=== PATIENT | male | born 1955 | race American Indian/Alaskan Native ===

== ENCOUNTER 2016-03-08 11:38 | Emergency (ER) | payer MEDICAID ==
--- NOTE | 2016-03-08 11:50 | Emergency Department Report ---
Chief Complaint: Pain General Stated Complaint: BACK/ARM PAIN Time Seen by Provider: 03/08/16 11:46 - HPI History of Present Illness: 60 y/o male complain of right arm pain and back pain x 2 months .pt state has been out blood pressure medication x 2 years .pt complain of headache with blurry vision .pt was told the last time he was evaluate by eye doctor was told had glaucoma.denies any N/v/d. - ROS Review of Systems: per HPI - Exam Vital Signs: Vital Signs 03/08/16 11:42 Temperature 98 F Pulse Rate 80 Blood Pressure 184/136 O2 Sat by Pulse 100 Oximetry Physical Exam: GENERAL: The patient is well-developed and well-nourished. Patient is in NAD. HENT: Normocephalic. Atraumatic. Patient has moist mucous membranes. Throat: No erythema, swelling or exudates. EYES: Extraocular motions are intact, PERRL NECK: Supple. No meningitic signs are noted. There is no adenopathy noted. CHEST/LUNGS: Clear to auscultation bilaterally. No wheezing, rales or rhonchi noted. There is no respiratory distress noted. HEART/CARDIOVASCULAR: Regular rate and rhythm. Normal S1 S2. No murmurs, rubs , clicks, or gallops. ABDOMEN: Abdomen is soft, nontender.. Bowel sounds normoactive. There is no abdominal distention. Negative rebound tenderness. : Deferred. SKIN: There is no rash. There is no edema. There is no diaphoresis. NEURO: The patient is A&Ox3. The patient has no focal neurologic deficits. MUSCULOSKELETAL: There is no tenderness or deformity. There is no limitation range of motion. PSYCH: Pt has appropriate mood and affect. MSE screening note: Focused history and physical exam performed. Due to findings the following was ordered: ED Disposition for MSE Condition: Stable
[2016-03-08 12:11] LABS: Eosinophils % (Auto) 5.2 % (0.0-4.3); Hematocrit 44.5 % (35.5-45.6); Hemoglobin 15.1 gm/dl (11.8-15.2); Mean Corpuscular HGB Conc 34 % (32-34); Mean Corpuscular Hemoglobin 33 pg (28-32); Mean Corpuscular Volume 98 fl (84-94); Platelet Count 202 K/mm3 (140-440); Red Blood Count 4.55 M/mm3 (3.65-5.03); Red Cell Distribution Width 13.5 % (13.2-15.2); White Blood Count 5.2 K/mm3 (4.5-11.0)
[2016-03-08 12:29] LABS: Alanine Aminotransferase 111 units/L (7-56); Albumin 3.7 g/dL (3.9-5); Albumin/Globulin Ratio 0.9 %; Alkaline Phosphatase 105 units/L (35-129); Anion Gap 17 mmol/L; BUN/Creatinine Ratio 12.22; Bilirubin,Total 0.6 mg/dL (0.1-1.2); Blood Urea Nitrogen 11 mg/dL (9-20); Calcium 8.4 mg/dL (8.4-10.2); Carbon Dioxide 26 mmol/L (22-30); Chloride 98.4 mmol/L (98-107); Glucose 111 mg/dL (75-100); Potassium 4.1 mmol/L (3.6-5.0); Sodium 137 mmol/L (137-145); Total Protein 7.9 g/dL (6.3-8.2)
[2016-03-08] MEDS ORDERED: NORCO 5/325 PO ONE (13:42)
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
[2016-03-08 14:03] LABS: Bilirubin,Urine NEG (Negative); Blood,Urine NEG (Negative); Ketones,Urine NEG (Negative); Leukocyte Esterase,Urine NEG (Negative); Mucus,Urine FEW /HPF; Nitrite,Urine NEG (Negative); Protein,Urine <15 mg/dL mg/dL (Negative); Sperm,Urine FEW /HPF (NP); Urobilinogen,Urine < 2.0 mg/dL (<2.0)
[2016-03-08 15:49] VITALS: BP 155/97
== END 2016-03-08 15:47 | disposition home or self-care (01) ==
LOC: ED 11:38
DX: M79.601 Pain in right arm (principal); I10 Essential (primary) hypertension; G89.29 Other chronic pain; F17.200 Nicotine dependence, unspecified, uncomplicated
CPT/HCPCS: 36415; 80053; 81001; 85025; 99283

== ENCOUNTER 2016-08-13 08:53 | Emergency (ER) | payer MEDICAID ==
[2016-08-13] MEDS ORDERED: NORCO 5/325 PO ONE (10:45)
[2016-08-13 11:04] LABS: Hematocrit 49.1 % (35.5-45.6); Hemoglobin 16.2 gm/dl (11.8-15.2); Mean Corpuscular HGB Conc 33 % (32-34); Mean Corpuscular Hemoglobin 32 pg (28-32); Mean Corpuscular Volume 97 fl (84-94); Platelet Count 179 K/mm3 (140-440); Red Blood Count 5.05 M/mm3 (3.65-5.03); Red Cell Distribution Width 14.7 % (13.2-15.2)
[2016-08-13 11:21] LABS: Bilirubin,Urine NEG (Negative); Blood,Urine NEG (Negative); Ketones,Urine NEG (Negative); Leukocyte Esterase,Urine NEG (Negative); Mucus,Urine FEW /HPF; Nitrite,Urine NEG (Negative); Protein,Urine <15 mg/dL mg/dL (Negative); RBC,Urine < 1.0 /HPF (0.0-6.0); Urobilinogen,Urine < 2.0 mg/dL (<2.0); WBC,Urine < 1.0 /HPF (0.0-6.0)
[2016-08-13 12:05] LABS: Basophils % (Manual) 0 % (0.0-1.8); Blastocytes % (Manual) 0 %
[2016-08-13 12:06] LABS: Diff Status Complete; RBC Morphology Normal
--- NOTE | 2016-08-13 12:07 | Ultrasound Report ---
RIGHT BREAST ULTRASOUND: 08/13/16 08:53:00 CLINICAL: 61-year-old male with a right breast lump. Possible abscess. COMPARISON: None. FINDINGS: Ultrasound of the right breast(including all four quadrants and the retroareolar area) was performed and demonstrated no mass or abscess. No fluid collection or shadowing. Moderate retroareolar fibroglandular structures. IMPRESSION: 1. No abscess or mass. 2. Probable benign right gynecomastia. Recommend a bilateral mammogram as an outpatient to complete the examination. BI-RADS 0--Needs Additional Imaging
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
[2016-08-13] MEDS ORDERED: CATAPRES PO ONE (13:15)
[2016-08-13 14:09] VITALS: BP 148/100
== END 2016-08-13 14:17 | disposition home or self-care (01) ==
LOC: ED 08:53
DX: N63 Unspecified lump in breast (principal); M54.5 Low back pain; M79.601 Pain in right arm; G89.29 Other chronic pain; I10 Essential (primary) hypertension; F17.200 Nicotine dependence, unspecified, uncomplicated; Z88.6 Allergy status to analgesic agent; Z88.8 Allergy status to other drugs, medicaments and biological substances
CPT/HCPCS: 36415; 81001; 85007; 85025

== ENCOUNTER 2016-10-15 11:04 | Emergency (ER) | payer MEDICAID ==
[2016-10-15] MEDS ORDERED: CLEOCIN 900 MG/50 mL 900 MG/50 ML BAG IV ONE (13:24)
[2016-10-15] MEDS ORDERED: NACL 0.9% 1000 ML 1,000 ML IV ONE (13:24)
[2016-10-15] MEDS ORDERED: BOOSTRIX IM ONE (13:27)
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
[2016-10-15] MEDS ORDERED: NORCO 5/325 PO ONE (13:33)
[2016-10-15 13:45] LABS: Basophils % (Auto) 0.7 % (0.0-1.8); Eosinophils % (Auto) 0.2 % (0.0-4.3); Hematocrit 37.3 % (35.5-45.6); Hemoglobin 12.7 gm/dl (11.8-15.2); Mean Corpuscular HGB Conc 34 % (32-34); Mean Corpuscular Hemoglobin 34 pg (28-32); Mean Corpuscular Volume 100 fl (84-94); Platelet Count 103 K/mm3 (140-440); Red Blood Count 3.73 M/mm3 (3.65-5.03); Red Cell Distribution Width 15.6 % (13.2-15.2); White Blood Count 11.1 K/mm3 (4.5-11.0)
--- NOTE | 2016-10-15 13:52 | XRay Report ---
Left hand: Trauma with ice pick. A marker identifies the second digit as the area of trauma. No evidence of puncture wound, swelling, or foreign body. The visualized bones and joints appear normal. Impression: Normal exam.
[2016-10-15 14:06] LABS: Anion Gap 20 mmol/L; Blood Urea Nitrogen 9 mg/dL (9-20); Calcium 8.2 mg/dL (8.4-10.2); Carbon Dioxide 22 mmol/L (22-30); Chloride 93.9 mmol/L (98-107); Erythrocyte Sedimentation Rate 37 mm/Hr (0-20); Glucose 147 mg/dL (75-100); Potassium 3.8 mmol/L (3.6-5.0); Sodium 132 mmol/L (137-145)
[2016-10-15 14:50] VITALS: BP 147/90
== END 2016-10-15 15:25 | disposition home or self-care (01) ==
LOC: ED 11:04
DX: S61.231A Puncture wound without foreign body of left index finger without damage to nail, initial encounter (principal); L03.114 Cellulitis of left upper limb; I10 Essential (primary) hypertension; F17.200 Nicotine dependence, unspecified, uncomplicated; X58.XXXA Exposure to other specified factors, initial encounter; Y93.9 Activity, unspecified; Y92.9 Unspecified place or not applicable; Y99.9 Unspecified external cause status
CPT/HCPCS: 36415; 73130; 80048; 85025; 85652; 86140; 87040; 90471; 90715; 96365; 99284; J7030

== ENCOUNTER 2016-10-19 18:28 | Emergency (ER) | payer MEDICAID ==
--- NOTE | 2016-10-19 21:59 | XRay Report ---
FINAL REPORT EXAM: XR HAND 3+V LT HISTORY: LEFT HAND SWELLING; left index finger cellulitis TECHNIQUE: Three views of the left hand PRIORS: None. FINDINGS: The bones are normally aligned and diffusely mineralized. The joint spaces are well-preserved. There is no evidence of acute fracture. There is diffuse soft tissue swelling of the index finger. There is no evidence of soft tissue air or foreign body. IMPRESSION: Diffuse soft tissue swelling of the left index finger. No evidence of soft tissue air or foreign body.
[2016-10-20 00:01] LABS: Anion Gap 23 mmol/L; BUN/Creatinine Ratio 6.66; Blood Urea Nitrogen 6 mg/dL (9-20); Calcium 8.7 mg/dL (8.4-10.2); Carbon Dioxide 20 mmol/L (22-30); Chloride 97.8 mmol/L (98-107); Glucose 87 mg/dL (75-100); Potassium 3.9 mmol/L (3.6-5.0); Sodium 137 mmol/L (137-145)
[2016-10-20 00:10] LABS: Eosinophils % (Auto) 1.1 % (0.0-4.3); Hematocrit 36.1 % (35.5-45.6); Hemoglobin 12.1 gm/dl (11.8-15.2); Mean Corpuscular HGB Conc 34 % (32-34); Mean Corpuscular Hemoglobin 34 pg (28-32); Mean Corpuscular Volume 103 fl (84-94); Platelet Count 191 K/mm3 (140-440); Red Blood Count 3.52 M/mm3 (3.65-5.03); Red Cell Distribution Width 16.5 % (13.2-15.2); White Blood Count 10.1 K/mm3 (4.5-11.0)
[2016-10-20 00:44] LABS: Erythrocyte Sedimentation Rate 39 mm/Hr (0-20)
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
[2016-10-20] MEDS ORDERED: TYLENOL #3 PO ONE (01:23)
[2016-10-20] MEDS ORDERED: CLEOCIN IM ONE (01:23)
[2016-10-20 04:00] VITALS: BP 165/107
== END 2016-10-20 02:15 | disposition home or self-care (01) ==
LOC: ED 18:28
DX: L03.114 Cellulitis of left upper limb (principal); I10 Essential (primary) hypertension; F17.210 Nicotine dependence, cigarettes, uncomplicated
CPT/HCPCS: 36415; 80048; 82140; 85025; 85652; 86140; 87040; 96372; 99284

== ENCOUNTER 2016-10-25 13:38 | Emergency (ER) | payer MEDICAID ==
[2016-10-25] MEDS ORDERED: XYLOCAINE 1% MPF 5 mL ONE (14:39)
[2016-10-25] MEDS ORDERED: TRIPLE ANTIBIOTIC TP ONE (15:02)
[2016-10-25 15:39] VITALS: BP 127/90
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
== END 2016-10-25 15:37 | disposition home or self-care (01) ==
LOC: ED 13:38
DX: L03.114 Cellulitis of left upper limb (principal); I10 Essential (primary) hypertension; G89.29 Other chronic pain; F17.200 Nicotine dependence, unspecified, uncomplicated; Z88.6 Allergy status to analgesic agent; Z88.8 Allergy status to other drugs, medicaments and biological substances
CPT/HCPCS: 99282; A6250

== ENCOUNTER 2017-05-15 17:50 | Inpatient (IN) | payer MEDICAID ==
[2017-05-15] MEDS ORDERED: NITROSTAT SL ONE (18:29)
[2017-05-15] MEDS ORDERED: NACL 0.9% 1000 ML 1,000 ML IV ONE (18:29)
--- NOTE | 2017-05-15 18:31 | Event Note ---
Date: 05/15/17 61-year-old male complaining of upper thoracic back pain, nontraumatic, noted to be tachycardic, also incidentally complains of central chest pain on and off over the past 2 days. Check labs, x-ray of the chest, EKG, patient should be triaged to the main side of the emergency room for further evaluation of upper thoracic back pain, chest pain and tachycardia. Hemodynamically stable at this time, walking with a steady gait, protecting airway. Reports no DVT or pulmonary embolus risk factors. Vital Signs 05/15/17 18:02 Temperature 97.5 F L Pulse Rate 126 H Respiratory 16 Rate Blood Pressure 160/120 O2 Sat by Pulse 98 Oximetry
[2017-05-15 19:05] LABS: Basophils # (Auto) 0.1 K/mm3 (0.0-0.1); Basophils % (Auto) 1.1 % (0.0-1.8); Eosinophils # (Auto) 0.1 K/mm3 (0.0-0.4); Eosinophils % (Auto) 1.2 % (0.0-4.3); Hematocrit 47.8 % (35.5-45.6); Hemoglobin 16.4 gm/dl (11.8-15.2); Lymphocytes % (Auto) 41.5 % (13.4-35.0); Mean Corpuscular HGB Conc 34 % (32-34); Mean Corpuscular Hemoglobin 33 pg (28-32); Mean Corpuscular Volume 95 fl (84-94); Monocytes # (Auto) 0.6 K/mm3 (0.0-0.8); Monocytes % (Auto) 11.3 % (0.0-7.3); Platelet Count 117 K/mm3 (140-440); Red Blood Count 5.03 M/mm3 (3.65-5.03); Red Cell Distribution Width 14.7 % (13.2-15.2)
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
[2017-05-15 19:14] LABS: BUN/Creatinine Ratio 10; Blood Urea Nitrogen 11 mg/dL (9-20); Calcium 8.9 mg/dL (8.4-10.2); Hemolysis Index 45
[2017-05-15 19:16] LABS: INR 1.17 (0.87-1.13)
[2017-05-15 19:17] LABS: Partial Thromboplastin Time 30.7 Sec. (24.2-36.6)
--- NOTE | 2017-05-15 20:33 | XRay Report ---
FINAL REPORT EXAM: XR CXR CLINICAL INDICATIONS: CP FINDINGS: Frontal and lateral views of the chest were acquired. The heart is normal in size. The lungs appear clear. The pleura and mediastinum are within normal limits. Sternal wires attest to prior sternotomy. There is no consolidative infiltrate. IMPRESSION: NO ACTIVE DISEASE IN THE CHEST
--- NOTE | 2017-05-15 22:22 | Cat Scan Report ---
FINAL REPORT PROCEDURE: CT ANGIO CHEST TECHNIQUE: Computerized tomographic angiography of the chest was performed during the IV injection of iodinated nonionic contrast including image processing. The image data was postprocessed using 2-dimensional multiplanar reformatted (MPR) and 3-dimensional (MIP and/or volume rendered) techniques. HISTORY: upper back pain, worsening, chest pain COMPARISON: No prior studies are available for comparison. FINDINGS: Pulmonary outflow tract, right and left main pulmonary arteries and their proximal branches: Clear, no filling defects seen to suggest pulmonary embolus. Pericardium: No evidence of pericardial effusion. Thoracic aorta: There is mild aneurysmal dilatation of the ascending thoracic aorta measuring 4.2 x 4.2 centimeter. No dissection is visualized. Coronary arteries: Are unremarkable. Mediastinum and hilar regions: Small calcified lymph nodes are seen in the right hilum. Lung Sagast[place]: Mild scattered emphysematous changes are visualized bilaterally. A small amount of dependent atelectasis is visualized. No focal consolidations effusions pneumothorax or masses are identified. Upper abdomen: Small calcified granulomas seen in the right lobe of the liver. Inferior vena cava filter visualized. No acute abnormalities are seen in the upper abdomen. Other: There is mild deformity posterior aspect right 11th rib and left 9th 10th and 11th rib which appear to represent old healed fractures.. sternotomy wires are visualized from prior thoracotomy.. IMPRESSION: Mild aneurysmal dilatation ascending thoracic aorta. No dissection is seen. No evidence of pulmonary embolus. Mild emphysematous changes are present as well as minimal dependent atelectasis. Lungs otherwise are clear. Prior granulomatous disease. Inferior vena cava filter in place. Old healed rib fractures present bilaterally as described.
[2017-05-15] MEDS ORDERED: CATAPRES PO ONE (22:42)
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
[2017-05-16] MEDS ORDERED: TYLENOL PO PRN (00:40)
[2017-05-16] MEDS ORDERED: SODIUM CHLORIDE FLUSH SYRINGE 10 ML IV PRN (00:40)
[2017-05-16] MEDS ORDERED: MORPHINE IV PRN (00:40)
[2017-05-16] MEDS ORDERED: ZOFRAN IV PRN (00:40)
[2017-05-16] MEDS ORDERED: APRESOLINE IV PRN (00:42)
[2017-05-16 01:51] LABS: Creatine Kinase MB 2.5 ng/mL (0.0-4.0)
[2017-05-16 08:27] LABS: Creatine Kinase MB 2.1 ng/mL (0.0-4.0)
--- NOTE | 2017-05-16 09:17 | Discharge Summary ---
Providers - Providers Date of Admission: 05/15/17 23:50 Date of discharge: 05/17/17 Attending physician: LORE ROTHMAN Primary care physician: DATABASE ADMINISTRATOR Hospitalization Condition: Stable Hospital course: Discharge diagnosis and management: Hypertensive urgency,malignant Chest pain most likely secondary to #1 Acute on chronic back pain thoracic aneurysm, no dissection per CT chest Thrombocytopenia Disposition: SD- TO HOME OR SELFCARE Time spent for discharge: 32 minutes Core Measure Documentation - Palliative Care Palliative Care/ Comfort Measures: Not Applicable - Core Measures Any of the following diagnoses?: none Exam - Constitutional Vitals: Temp Pulse Resp BP Pulse Ox 98.6 F 44 L 18 144/109 97 05/16/17 08:45 05/16/17 08:45 05/16/17 08:45 05/16/17 08:45 05/16/17 08:45 General appearance: Present: no acute distress, well-nourished - EENT Eyes: Present: PERRL ENT: hearing intact, clear oral mucosa - Neck Neck: Present: supple, normal ROM - Respiratory Respiratory effort: normal Respiratory: bilateral: CTA - Cardiovascular Heart Sounds: Present: S1 & S2. Absent: rub, click - Extremities Extremities: pulses symmetrical, No edema Peripheral Pulses: within normal limits - Abdominal General gastrointestinal: Present: soft, non-tender, non-distended, normal bowel sounds - Integumentary Integumentary: Present: clear, warm, dry - Musculoskeletal Musculoskeletal: gait normal, strength equal bilaterally - Psychiatric Psychiatric: appropriate mood/affect, intact judgment & insight - Neurologic Neurologic: CNII-XII intact, moves all extremities Plan Activity: advance as tolerated Weight Bearing Status: Non-Weight Bearing Diet: low fat, low salt Additional Instructions: F/u @ [facility] in one -two weeks Follow up with: [facility] [Provider Group] - 7 Days PRIMARY CARE, [Primary Care Provider] - 3-5 Days Prescriptions: amLODIPine [Norvasc] 5 mg PO DAILY #40 tab Aspirin EC [Aspirin Enteric Coated TAB] 81 mg PO QDAY #30 tablet. Hydrochlorothiazide [HCTZ] 25 mg PO QDAY #40 tablet HYDROcodone/APAP 5-325 [[place] 5-325 mg TAB] 1 each PO Q6HR PRN #30 tablet PRN Reason: Pain Metoprolol [Lopressor TAB] 25 mg PO BID #60 tablet Pantoprazole [Protonix] 40 mg PO QDAY #30 tablet
[2017-05-16] MEDS: LOPRESSOR PO SCH ×2 (09:44→22:28)
[2017-05-16] MEDS: NORVASC PO SCH (09:44)
[2017-05-16] MEDS ORDERED: LOVENOX SUB-Q SCH (10:00)
[2017-05-16] MEDS: SODIUM CHLORIDE FLUSH SYRINGE 10 ML IV SCH ×2 (10:18→22:29)
[2017-05-17 06:44] LABS: Hematocrit 42.1 % (35.5-45.6); Hemoglobin 14.8 gm/dl (11.8-15.2); Mean Corpuscular HGB Conc 35 % (32-34); Mean Corpuscular Hemoglobin 33 pg (28-32); Mean Corpuscular Volume 95 fl (84-94); Red Blood Count 4.44 M/mm3 (3.65-5.03); Red Cell Distribution Width 14.5 % (13.2-15.2)
[2017-05-17 06:51] LABS: Platelet Count 85 K/mm3 (140-440)
[2017-05-17 06:57] LABS: BUN/Creatinine Ratio 13; Blood Urea Nitrogen 10 mg/dL (9-20); Calcium 8.3 mg/dL (8.4-10.2); Hemolysis Index 11
[2017-05-17 07:55] LABS: Anisocytosis 1+; Basophils % (Manual) 0 % (0.0-1.8); Platelet Estimate Appears Decreased; Stomatocytes 2+; Total Cells Counted 100
[2017-05-17] MEDS: LOPRESSOR PO SCH (09:17)
[2017-05-17] MEDS: NORVASC PO SCH (09:17)
[2017-05-17] MEDS: SODIUM CHLORIDE FLUSH SYRINGE 10 ML IV SCH (09:18)
[2017-05-17] MEDS ORDERED: LEXISCAN IV ONE (10:08)
--- NOTE | 2017-05-17 11:48 | Progress Note ---
Assessment and Plan Hypertensive urgency,malignant Chest pain most likely secondary to #1 Acute on chronic back pain thoracic aneurysm, no dissection per CT chest Thrombocytopenia - will follow 2d echo result - stress test in the am - his back pain is chronic with h/o prolapsed disk - patient is ambulatory and willing to f/u outpt for back pain - cont meds to better adjust BP - possible d/c in the am if stress test negative Subjective Date of service: 05/16/17 Interval history: Pt seen and examined States back pain improved with pain medications also states that he gets chest pain intermittently, but denies any chest pain now Objective - Constitutional Vitals: Vital Signs - 12hr 05/17/17 05/17/17 05/17/17 00:37 05:10 07:36 Temperature 98.8 F 97.6 F 98.2 F Pulse Rate 81 85 86 Respiratory 18 18 20 Rate Blood Pressure 127/97 137/101 157/106 O2 Sat by Pulse 99 99 97 Oximetry 05/17/17 09:17 Temperature Pulse Rate 57 L Respiratory Rate Blood Pressure 157/106 O2 Sat by Pulse Oximetry General appearance: Present: no acute distress, well-nourished - EENT Eyes: PERRL, EOM intact ENT: hearing intact, clear oral mucosa Ears: bilateral: normal - Neck Neck: supple, normal ROM - Respiratory Respiratory effort: normal Respiratory: bilateral: CTA - Cardiovascular Rhythm: regular Heart Sounds: Present: S1 & S2. Absent: gallop, rub Extremities: pulses intact, No edema, normal color, Full ROM - Gastrointestinal General gastrointestinal: Present: soft, non-tender, non-distended, normal bowel sounds - Integumentary Integumentary: clear, warm, dry - Musculoskeletal Musculoskeletal: 1, strength equal bilaterally - Neurologic Neurologic: moves all extremities - Psychiatric Psychiatric: memory intact, appropriate mood/affect, intact judgment & insight - Labs CBC & Chem 7: 05/17/17 06:20 05/17/17 06:20 Labs: Abnormal lab results 05/17/17 05/17/17 Range/Units 06:20 06:20 MCV 95 H (84-94) fl MCH 33 H (28-32) pg MCHC 35 H (32-34) % Plt Count 85 L (140-440) K/mm3 Lymphocytes % (Manual) 46.0 H (13.4-35.0) % Monocytes % (Manual) 8.0 H (0.0-7.3) % Sodium 132 L (137-145) mmol/L Chloride 94.1 L (98-107) mmol/L Calcium 8.3 L (8.4-10.2) mg/dL
[2017-05-17 12:33] VITALS: BP 142/104
--- NOTE | 2017-05-17 13:37 | Treadmill Report ---
ORDERING PHYSICIAN: Dr. Larkin. INDICATION: Chest pain. FINDINGS: There is no scintigraphic evidence of myocardial ischemia. The left ventricle is normal in size and systolic function, left ventricular ejection fraction is measured at 56%. Normal wall motion and wall thickening is noted on gated imaging. CONCLUSION: 1. This is an adequate myocardial perfusion scan revealing no scintigraphic evidence of myocardial ischemia. 2. Normal left ventricular size and ejection fraction. 3. This is a low risk myocardial perfusion scan associated with a 1-year, cardiovascular event, less than 1%. JOB# [id number] GARY/CYNTHIA
== END 2017-05-17 16:10 | disposition home or self-care (01) | DRG 305 ==
LOC: ED 17:50 → 4A 23:50
PROVIDERS: ADMIT Internal Medicine; ATTEND Internal Medicine
DX: I16.0 Hypertensive urgency (principal); G89.29 Other chronic pain; M54.9 Dorsalgia, unspecified; I71.2 Thoracic aortic aneurysm, without rupture; D69.6 Thrombocytopenia, unspecified; R00.0 Tachycardia, unspecified; I10 Essential (primary) hypertension; M54.6 Pain in thoracic spine; F17.200 Nicotine dependence, unspecified, uncomplicated; Z79.899 Other long term (current) drug therapy; Z82.49 Family history of ischemic heart disease and other diseases of the circulatory system; Z72.89 Other problems related to lifestyle
CPT/HCPCS: 36415; 71046; 71275; 78452; 80048; 82550; 82553; 84484; 85007; 85025; 85610; 85730; 93005; 93010; 93017; 93306; 96360; A9502; J0360; J2785; J7030; Q9967